=== PATIENT | male | born 1960 ===

== ENCOUNTER 2025-01-15 12:34 | Outpatient (CLI) | payer MEDICAID, SELFPAY ==
--- NOTE | 2025-01-15 12:45 | MR_ITS ---
WS: [id number] MRI BRAIN WITH HIGH-RESOLUTION IMAGING THROUGH THE INTERNAL AUDITORY CANALS WITHOUT AND WITH CONTRAST HISTORY: MIXED CONDUCTIVE SENSORINEURAL HEARING LOSS COMPARISON: Chronic left-sided hearing loss. TECHNIQUE: Multiplanar, multisequence imaging is performed through the brain. Additional 3 mm imaging performed in multiple planes through the internal auditory canal. Postcontrast imaging with 20 ml's of MultiHance. No acute intracranial hemorrhage, midline shift, edema or mass effect. Normal hippocampal formations. No prior infarct. No significant small vessel disease. There is very mild cerebral atrophy. Ventricles and extra-axial spaces are normal. No inferior displacement of cerebellar tonsils. Clivus and pituitary gland are normal. Internal and external auditory canals: Unremarkable. Cranial nerves VII and VIII complexes: Unremarkable. No enhancement or mass. Cerebellopontine angles: Normal. Paranasal sinuses: Normal. Mastoid air cells: Normal. Calvarium and scalp: Normal. Visualized [place] and dural venous sinuses demonstrate no abnormality. Small caliber but patent distal RIGHT vertebral artery. MR/MR iac's wo/w con* [id number] IMPRESSION: 1. Normal internal and external auditory canals and cerebellopontine angles. N o mass or signal abnormality. 2. Mild cerebral atrophy. 3. No prior infarct or significant small vessel disease. 4. No enhancing masses.
== END 2025-01-15 12:35 | disposition home or self-care (01) ==
PROVIDERS: PCP Physician Assistant; Visit Provider Nurse Practitioner Family
DX: H90.A32 Mixed conductive and sensorineural hearing loss, unilateral, left ear with restricted hearing on the contralateral side (principal); H93.19 Tinnitus, unspecified ear; G31.89 Other specified degenerative diseases of nervous system
CPT/HCPCS: 70553